=== PATIENT | female | born 1985 | race Caucasian/White ===

== ENCOUNTER 2017-04-30 17:00 | Emergency (ER) | payer OTHER ==
[2017-04-30 17:06] VITALS: BP 119/60; BMI 43.4
--- NOTE | 2017-04-30 17:39 | DR.GENAD ---
HPI - PCP Primary Care Physician: dr. putnam - Complaint/Symptoms Chief Complaint:: pt stated she has been hurting in her lower left back down to her leg. pt being treated for a uti - Nurses notes reviewed Nurses Notes Review: Yes - Source History Provided: Patient - Mode of Arrival Mode of Arrival: Ambulatory - Timing Onset of Chief Complaint: 04/26/17 PMH - PMH Past Medical History: No Past Surgical History: Yes Past Surgical History Comment: breast - Family History History of Family Medical Conditions: Yes Family Medical History: Diabetes Mellitus, Hypertension - Social History Does patient currently use any type of tobacco product: No Have you used tobacco products in the last 12 months: No Type of Tobacco Use: None Does any household member use tobacco: No Alcohol Use: None Do you use any recreational Drugs:: No Lives With: Family Lives Where: Home - infectious screening In the last 2 months have you had wt loss of >10#?: NO Have you had fever, night sweats or hemotysis?: No Have you traveled outside the country in the last 6 months?: No Isolation: Standard PE - Vital Signs Vitals: Temperature 97.7 F Pulse Rate 78 Respiratory Rate 16 Blood Pressure [Right Arm] 129/70 Blood Pressure 119/60 O2 Sat by Pulse Oximetry 98 ROR - Labs Reviewed Result Diagrams: 04/30/17 18:10 04/30/17 18:10 Laboratory: WBC 9.8 X10^3/uL (3.6-10.0) 04/30/17 18:10 RBC 5.05 X10^6/uL (3.5-5.4) 04/30/17 18:10 Hgb 11.9 g/dL (12.0-16.0) L 04/30/17 18:10 Hct 37.2 % (36.0-47.0) 04/30/17 18:10 MCV 73.7 fL (80.0-100.0) L 04/30/17 18:10 MCH 23.5 pg (27.0-34.0) L 04/30/17 18:10 MCHC 31.9 g/dL (33.0-35.0) L 04/30/17 18:10 RDW 15.3 % (11.6-16.5) 04/30/17 18:10 Plt Count 358 X10^3/uL (150.0-450.0) 04/30/17 18:10 Plt Count Comment Adequate (ADEQUATE) 04/30/17 18:10 MPV 8.2 fL (7.4-11.0) 04/30/17 18:10 Neut % 68.5 % (42.0-75.0) 04/30/17 18:10 Lymph % 22.5 % (21.0-51.0) 04/30/17 18:10 [place] % 7.4 % (0.0-13.0) 04/30/17 18:10 Eos % 1.1 % (0.9-2.9) 04/30/17 18:10 Baso % 0.5 % (0.2-1.0) 04/30/17 18:10 Neut # 6.7 x10^3/uL (2.2-4.8) H 04/30/17 18:10 Lymph # 2.2 X10^3/uL (1.3-2.9) 04/30/17 18:10 [place] # 0.7 x10^3/uL (0.3-0.8) 04/30/17 18:10 Eos # 0.1 x10^3/uL (0.0-0.2) 04/30/17 18:10 Baso # 0.0 X10^3/uL (0.0-0.1) 04/30/17 18:10 Absolute Nucleated RBC 0.0 /100WBC 04/30/17 18:10 Plt Morphology Comment Normal (NORMAL) 04/30/17 18:10 RBC Morphology Abnormal (NORMAL) A 04/30/17 18:10 Hypochromasia Slight A 04/30/17 18:10 Sodium 139 mmol/L (136-145) 04/30/17 18:10 Corrected Sodium TNP 04/30/17 18:10 Potassium 3.9 mmol/L (3.5-5.1) 04/30/17 18:10 Chloride 105 mmol/L (98-107) 04/30/17 18:10 Carbon Dioxide 27.0 mmol/L (21-32) 04/30/17 18:10 BUN 10 mg/dL (7-18) 04/30/17 18:10 Creatinine 0.90 mg/dL (0.55-1.02) 04/30/17 18:10 Est GFR (MDRD) Af Amer > 60 (>60) 04/30/17 18:10 Est GFR (MDRD) Non-Af > 60 (>60) 04/30/17 18:10 Glucose 82 mg/dL (65-99) 04/30/17 18:10 Calcium 8.6 mg/dL (8.5-10.1) 04/30/17 18:10 Corrected Calcium TNP 04/30/17 18:10 Total Bilirubin 0.20 mg/dL (0.2-1.0) 04/30/17 18:10 AST 20 Units/L (15-37) 04/30/17 18:10 ALT 40 Units/L (12-78) 04/30/17 18:10 Alkaline Phosphatase 104 Units/L (46-116) 04/30/17 18:10 C-Reactive Protein 10.50 mg/L (0-3.0) H 04/30/17 18:10 Total Protein 8.0 g/dL (6.4-8.2) 04/30/17 18:10 Albumin 3.5 g/dL (3.4-5.0) 04/30/17 18:10 Globulin 4.5 g/dL (2.5-4.5) 04/30/17 18:10 Albumin/Globulin Ratio 0.8 Ratio (1.1-2.1) L 04/30/17 18:10 HCG, Qual Negative <10 mIU/mL 04/30/17 18:10 Specimen Type Clean catch urine 04/30/17 18:35 Urine Color Dark yellow (YELLOW) 04/30/17 18:35 Urine Appearance Hazy (CLEAR) 04/30/17 18:35 Urine pH 6.0 (5.0 - 8.0) 04/30/17 18:35 Ur Specific [place] 1.025 (1.000-1.030) 04/30/17 18:35 Urine Protein 1+ (NEGATIVE) 04/30/17 18:35 Urine Glucose (UA) Negative (NEGATIVE) 04/30/17 18:35 Urine Ketones Negative (NEGATIVE) 04/30/17 18:35 Urine Occult Blood 2+ (NEGATIVE) 04/30/17 18:35 Urine Nitrite Positive (NEGATIVE) 04/30/17 18:35 Urine Bilirubin 1+ (NEGATIVE) 04/30/17 18:35 Urine Urobilinogen 2+ (NORMAL) 04/30/17 18:35 Ur Leukocyte Esterase 3+ (NEGATIVE) 04/30/17 18:35 Urine RBC 10 -20 /HPF (NEGATIVE) 04/30/17 18:35 Urine WBC 30 - 40 /HPF (NEGATIVE) 04/30/17 18:35 Ur Squamous Epith Cells Many /HPF (NEGATIVE) 04/30/17 18:35 Amorphous Sediment 1+ /HPF (NEGATIVE) 04/30/17 18:35 Urine Bacteria Trace /HPF (NEGATIVE) 04/30/17 18:35 Urine Mucus Moderate /HPF (NEGATIVE) 04/30/17 18:35 Ur Culture Indicated? Yes/culture set up 04/30/17 18:35 - Discharge Plan Condition: Stable Prescriptions: Cyclobenzaprine HCl [FLEXERIL 10 MG *] 10 mg PO TID PRN #20 tab PRN Reason: Ibuprofen [MOTRIN TAB 800 MG *] 800 mg PO Q8H PRN #20 tab PRN Reason: Pain/Inflammation Sulfamethoxazole-Trimethoprim [BACTRIM DS TAB 800/160 MG *] 1 tab PO BID #20 tab - Follow ups/Referrals Follow ups/Referrals: [facility],None [Primary Care Provider] - 3 days - Instructions Instructions: Back Pain, Adult, [id number] Additional Instructions: RETURN TO ED IF WORSE.
[2017-04-30] MEDS ORDERED: TORADOL 60 MG VIAL IM ONE (17:45)
[2017-04-30] MEDS ORDERED: NORFLEX INJ IM ONE (17:45)
[2017-04-30] MEDS ORDERED: NORFLEX INJ ONE (17:58)
[2017-04-30] MEDS ORDERED: TORADOL 60 MG VIAL ONE (17:58)
--- NOTE | 2017-04-30 18:09 | CT ---
HISTORY: Left flank pain Study: CT abdomen and pelvis without contrast Comparison: None Technique: Multiple axial images of the abdomen and pelvis were obtained without IV contrast. Dose reduction t echniques including Automated Exposure Control (AEC) and adjustment of mA and kV were utilized. Findings: Please note evaluation is limited without use of IV contrast. The visualized lung bases are clear. The liver, spleen, pancreas, kidneys, and adrenal glands are un remarkable in their unenhanced CT appearance. The gallbladder is contracted but otherwise unremarkabl e. No calcified gallstones are seen. No renal calculi or obstructive uropathy identified. No free intraperitoneal air. No evidence of intestinal obstruction or inflammation. The appendix is n ormal. No free fluid identified. The soft tissues and osseous structures are unremarkable. Limited evaluation of vascular structures d ue to lack of contrast. No pathologically enlarged lymph nodes are identified. The urinary bladder is normal. IMPRESSION: 1.Negative noncontrast CT of the abdomen and pelvis. Reported By:
[2017-04-30 18:21] LABS: BASOPHILS % (AUTO) 0.5 % (0.2-1.0); EOSINOPHILS # (AUTO) 0.1 x10^3/uL (0.0-0.2); EOSINOPHILS % (AUTO) 1.1 % (0.9-2.9); HEMATOCRIT 37.2 % (36.0-47.0); HEMOGLOBIN 11.9 g/dL (12.0-16.0); LYMPHOCYTES # (AUTO) 2.2 X10^3/uL (1.3-2.9); LYMPHOCYTES % (AUTO) 22.5 % (21.0-51.0); MEAN CORPUSCULAR HEMOGLOBIN 23.5 pg (27.0-34.0); MEAN CORPUSCULAR HGB CONC 31.9 g/dL (33.0-35.0); MEAN CORPUSCULAR VOLUME 73.7 fL (80.0-100.0); MEAN PLATELET VOLUME 8.2 fL (7.4-11.0); MONOCYTES # (AUTO) 0.7 x10^3/uL (0.3-0.8); MONOCYTES % (AUTO) 7.4 % (0.0-13.0); NEUTROPHILS # (AUTO) 6.7 x10^3/uL (2.2-4.8); NEUTROPHILS % (AUTO) 68.5 % (42.0-75.0); PLATELET COUNT 358 X10^3/uL (150.0-450.0); RED BLOOD COUNT 5.05 X10^6/uL (3.5-5.4); RED CELL DISTRIBUTION WIDTH 15.3 % (11.6-16.5); WHITE BLOOD COUNT 9.8 X10^3/uL (3.6-10.0)
[2017-04-30 18:28] LABS: SERUM PREGNANCY TEST, QUAL NEGATIVE <10 mIU/mL
[2017-04-30 18:29] LABS: ALANINE AMINOTRANSFERASE 40 Units/L (12-78); ALBUMIN 3.5 g/dL (3.4-5.0); ALKALINE PHOSPHATASE 104 Units/L (46-116); ASPARTATE AMINO TRANSFERASE 20 Units/L (15-37); BLOOD UREA NITROGEN 10 mg/dL (7-18); CALCIUM 8.6 mg/dL (8.5-10.1); CHLORIDE 105 mmol/L (98-107); SODIUM 139 mmol/L (136-145); eGFR BLACK RACES > 60 (>60); eGFR NON BLACK RACES > 60 (>60)
[2017-04-30 18:34] LABS: HYPOCHROMASIA SLIGHT; PLATELET MORPHOLOGY COMMENT NORMAL (NORMAL)
[2017-04-30 18:52] LABS: BILIRUBIN,URINE 1+ (NEGATIVE); BLOOD/HEMOGLOBIN,URINE 2+ (NEGATIVE); GLUCOSE, URINE NEGATIVE (NEGATIVE); KETONES,URINE NEGATIVE (NEGATIVE); LEUKOCYTE ESTERASE ,URINE 3+ (NEGATIVE); NITRITES,URINE POSITIVE (NEGATIVE); PROTEIN,URINE 1+ (NEGATIVE); UROBILINOGEN,URINE 2+ (NORMAL)
[2017-04-30 19:22] LABS: APPEARANCE,URINE HAZY (CLEAR); BACTERIA,URINE TRACE /HPF (NEGATIVE); COLOR,URINE DARK YELLOW (YELLOW); SQUAMOUS EPITHELIAL CELL,UR MANY /HPF (NEGATIVE)
[2017-04-30 19:23] LABS: AMORPHOUS SEDIMENT,UR 1+ /HPF (NEGATIVE); MUCUS,URINE MODERATE /HPF (NEGATIVE)
[2017-04-30] MEDS ORDERED: BACTRIM DS TAB PO ONE ×2 (19:28→19:36)
== END 2017-04-30 19:43 | disposition home or self-care (01) ==
LOC: ER 17:00
DX: N39.0 Urinary tract infection, site not specified (principal); M54.5 Low back pain
CPT/HCPCS: 36415; 74176; 80053; 81001; 84703; 85025; 86140; 87086; 96372; 99282; 99283; J1885; J2360